=== PATIENT | male | born 1990 | race African-American/Black ===

== ENCOUNTER 2016-10-02 06:55 | Emergency (ER) | payer SELFPAY ==
[~2016-10-02] VITALS: Ht 180.3 cm; Wt 100.0 kg
[2016-10-02 06:56] VITALS: BP 152/75; PULSE 83; RESP 16; TEMP 98.5; O2SAT 97
--- NOTE | 2016-10-02 07:16 | PD ---
HPI Chief Complaint: ENT Complaint Time Seen by Provider: 07:10 Travel History International Travel<30 days: No Contact w/Intl Traveler<30days: No Traveled to known affect area: No History of Present Illness HPI 26-year-old Afro-[place] male presents to emergency Department with several day history of sore throat, sinus congestion, postnasal drip. Patient states chills yesterday but denies specific fever. Patient has had headache and congestion but no ear pain. Patient states his cough is productive and worse at night. He denies shortness of breath or chest discomfort. He denies heartburn or abdominal complaints. He has a pain scale of about 8/10 which was improved with saltwater gargles morning. Patient is allergic to shellfish but has no known drug allergies. [facility] Social History Alcohol Use: No Tobacco Use: No Substance Use: No Allergies-Medications (Allergen,Severity, Reaction): Coded Allergies: Shellfish (Verified Allergy, Intermediate, "sweats", 10/02/16) Reported Meds & Prescriptions Reported Meds & Active Scripts Active Ibuprofen 600 Mg Tab 600 Mg PO Q6H PRN Flonase Nasal [place] (Fluticasone Nasal [place]) 50 Mcg/Act [place] 100 Mcg EACH NARE DAILY Amoxicillin 875 Mg Tab 875 Mg PO BID Review of Systems Except as stated in HPI: all other systems reviewed are Neg General / Constitutional: Positive: Chills, No: Fever Eyes: No: Visual changes HENT: Positive: Headaches, Sore Throat, Rhinitis, Rhinorrhea, Congestion, Other (postnasal drip.), No: Nosebleed, Neck Stiffness, Neck Pain, Gingival Bleeding, Dental Difficulties, Ear Discharge, Earache Cardiovascular: No: Chest Pain or Discomfort Respiratory: Positive: Cough, No: Shortness of Breath Gastrointestinal: No: Abdominal Pain Genitourinary: No: Dysuria Musculoskeletal: No: Pain Skin: No Rash Neurologic: No: Weakness Psychiatric: No: Depression Endocrine: No: Polydipsia Hematologic/Lymphatic: No: Easy Bruising Physical Exam Narrative GENERAL: Patient appears in no acute distress. SKIN: Warm and dry. Normal color. Normal turgor. HEAD: Atraumatic. Normocephalic. Patient has mild to moderate sinus tenderness in both frontal and maxillary sinuses. EYES: Pupils equal and round. No scleral icterus. No injection or drainage. ENT: No nasal bleeding or discharge. Patient has bilateral swollen turbinates which are injected. Mucous membranes pink and moist. Posterior pharynx is quite irritated and injected with cobblestoning and obvious postnasal drip noted. Tonsils are somewhat inflamed as well without exudate or signs of abscess. Airway is patent. Uvula is midline. TMs are clear bilaterally. NECK: Trachea midline. Supple and nontender with mild lymphadenopathy in the anterior cervical lymph nodes. CARDIOVASCULAR: Regular rate and rhythm. RESPIRATORY: No accessory muscle use. Clear to auscultation. Breath sounds equal bilaterally. MUSCULOSKELETAL: Extremities without clubbing, cyanosis, or edema. No obvious deformities. NEUROLOGICAL: Awake and alert. No obvious cranial nerve deficits. Motor grossly within normal limits. Five out of 5 muscle strength in the arms and legs. Normal speech. PSYCHIATRIC: Appropriate mood and affect; insight and judgment normal. Data Data Last Documented VS Vital Signs Date Time Temp Pulse Resp B/P Pulse Ox O2 Delivery O2 Flow Rate FiO2 10/02/16 06:56 98.5 83 16 152/75 97 Room Air [facility] Medical Decision Making Medical Screen Exam Complete: Yes Emergency Medical Condition: Yes Differential Diagnosis Upper respiratory infection. Pharyngitis. Sinusitis. Postnasal drip. Narrative Course Patient's medically stable at time of exam. Patient will be treated for sinusitis with amoxicillin 875 twice a day 10 days. Patient also given Flonase nasal spray 2 sprays each nostril daily. Patient also given ibuprofen 600 mg 4 times a day when necessary sore throat pain. #40. Work note is given. Patient is to follow-up as needed. Diagnosis Primary Impression: Sinusitis, acute Qualified Code: J01.40 - Acute pansinusitis, recurrence not specified Additional Impression: Post-nasal drip Referrals: [facility] Primary Care Physician Patient Instructions: General Instructions, Sinusitis (ED) Departure Forms: Work Release Enter return to work date: Oct 04, 2016 Additional Instructions: Patient will be treated for sinusitis with amoxicillin 875 twice a day 10 days. Patient also given Flonase nasal spray 2 sprays each nostril daily. Patient also given ibuprofen 600 mg 4 times a day when necessary sore throat pain. #40. Work note is given. Patient is to follow-up as needed. Med/Other Pt SpecificInfo: Prescription(s) given Scripts Ibuprofen 600 Mg [id number] Mg PO Q6H PRN (Pain/Inflammation) #40 TAB Prov:Misha Espitia MD 10/02/16 Fluticasone Nasal [place] (Flonase Nasal [place])50 Mcg/Act [id number] Mcg EACH NARE DAILY #1 BOTTLE Prov:Misha Espitia MD 10/02/16 Amoxicillin 875 Mg [id number] Mg PO BID #20 TAB Prov:Misha Espitia MD 10/02/16 Disposition: 01 DISCHARGE HOME Condition: Stable Luke Parks Oct 02, 2016 07:16
[2016-10-02] MEDS ORDERED: IBUP-232 PO (07:17)
[2016-10-02] MEDS ORDERED: FLUT1SPR5 EACH NARE (07:17)
[2016-10-02] MEDS ORDERED: AMOX875T PO (07:17)
== END 2016-10-02 08:13 | disposition home or self-care (01) ==
LOC: NEPK 06:55
DX: J01.40 Acute pansinusitis, unspecified (principal)
CPT/HCPCS: 99284